=== PATIENT | female | born 1940 | race Caucasian/White ===

== ENCOUNTER 2017-03-05 06:55 | Day surgery (SDC) | payer OTHER ==
[2017-03-05 08:02] LABS: HEMATOCRIT 40.5 % (34.0-47.0); MEAN CELL VOLUME 80.3 fL (81.0-99.0); MEAN CORPUSCULAR HEMOGLOBIN 26.9 pg (27.0-31.0); MEAN CORPUSCULAR HGB CONC 33.5 g/dL (33.0-37.0); MEAN PLATELET VOLUME 9.7 fL (7.2-11.7); RED CELL DISTRIBUTION WIDTH 13.8 % (11.5-14.5); WHITE BLOOD COUNT 6.5 K/uL (4.8-10.8)
[2017-03-05 08:07] LABS: BLOOD UREA NITROGEN 20 mg/dL (7-17); CALCIUM 8.8 mg/dl (8.6-10.4); CARBON DIOXIDE 28 mmol/L (22-30); CHLORIDE 99 mmol/L (98-107); GFR AFRICAN-AMERICAN > 60; GLUCOSE,RANDOM 93 mg/dL (65-105); POTASSIUM 3.2 mmol/L (3.6-5.2); SODIUM 140 mmol/L (132-148)
[2017-03-05 08:10] LABS: INR 1.1
[2017-03-05] MEDS ORDERED: Potassium Chloride 20 mEq ER Tab PO ONE (08:23)
[2017-03-05] MEDS ORDERED: Nitroglycerin 50mg in D5W 50 MG/250 ML BOTTLE IV ONE (08:43)
[2017-03-05] MEDS ORDERED: Lidocaine 2% Inj (20ml) ONE (08:44)
[2017-03-05] MEDS ORDERED: Midazolam 2 MG/2 ML VIAL ONE (08:59)
[2017-03-08 14:18] VITALS: RESP 18; O2SAT 100
--- NOTE | 2017-03-11 04:38 | CARDCATH ---
PROCEDURE DATE: 03/05/2017 PROCEDURES: 1. Left heart catheterization. 2. Coronary angiogram and left ventricular angiogram. 3. Radiological supervision and radiological interpretation of the coronary angiogram and left ventricular angiogram. CLINICAL INDICATIONS: 1. Abnormal stress test. 2. Dyspnea on minimal exertion. 3. Chest pain. 4. Hypertension. 5. Obesity. REFERRING PHYSICIAN: Dr. Zuleima Murillo. PERFORMING PHYSICIAN: Dr. Mann Norman. PROCEDURE: After informed consent, the patient was prepped and draped in the usual sterile fashion. A 2% lidocaine was given in the right wrist for local anesthesia. Using micropuncture technique, 6 [place] sheath was introduced into right radial artery. A JR4 6-Grenadian diagnostic catheter crossed into left ventricle across the aortic valve. Contrast injected and LV angiogram was performed. Left ventricular end-diastolic pressure and pressure gradient across the aortic valve was measured. Next, the JR4 catheter engaged into the right coronary artery. Contrast injected and right coronary angiogram was performed. This catheter was exchanged to 6-G[place] catheter. [place] catheter engaged into left main coronary artery. Contrast injected and left coronary angiogram was performed. Radiological supervision and radiological interpretation of the coronary angiogram and LV angiogram was done. FINDINGS: 1. Left main coronary artery is patent. 2. Proximal LAD is patent. Mid LAD has a long 60% to 70% stenosis. Distal LAD is patent. Diagonal branches are patent. 3. Left circumflex coronary artery is patent. 4. Right coronary artery is dominant. 5. Proximal mid and distal right coronary artery is patent. However, large PDA branch has a 95% eccentric stenosis. 6. LV ejection fraction is approximately 65%. No wall motion abnormalities noted. EDP of 13. No gradient across the aortic valve. IMPRESSION: Two-vessel coronary artery disease. PLAN: 1. Recommend PDA coronary intervention with drug-eluting stent placement. 2. Recommend FFR of mid left anterior descending coronary artery. If FFR is significant, recommend intervention of the left anterior descending coronary artery. Mann Norman MD
== END 2017-03-05 13:30 | disposition home or self-care (01) ==
LOC: C.CATHLAB 06:55
PROVIDERS: ATTEND Internal Medicine Cardiovascular Disease
DX: I25.10 Atherosclerotic heart disease of native coronary artery without angina pectoris (principal); R06.02 Shortness of breath; I10 Essential (primary) hypertension; E66.9 Obesity, unspecified
CPT/HCPCS: 36415; 80048; 85027; 85610; 85730; 93452; 93458; 94770; C1769; C1887; J1644; J2250; J3010; Q9967